=== PATIENT | female | born 1945 | race Caucasian/White ===

== ENCOUNTER 2022-07-23 09:15 | Emergency (ER) | payer MEDICARE ==
[~2022-07-23] VITALS: Ht 165.1 cm; Wt 98.0 kg
[2022-07-23 09:26] VITALS: BP 176/63
[2022-07-23] MEDS ORDERED: PRED20TA PO (11:06)
[2022-07-23] MEDS ORDERED: ORPH100T2 PO (11:06)
[2022-07-23] MEDS ORDERED: AMOX-117 PO (11:06)
[2022-07-23] MEDS ORDERED: FLUT16SP8 BOTHNARES (11:06)
== END 2022-07-23 11:20 | disposition home or self-care (01) ==
LOC: ER 09:16
DX: S16.1XXA Strain of muscle, fascia and tendon at neck level, initial encounter (principal); J01.10 Acute frontal sinusitis, unspecified; Z90.49 Acquired absence of other specified parts of digestive tract; Z79.899 Other long term (current) drug therapy; X58.XXXA Exposure to other specified factors, initial encounter; Y93.89 Activity, other specified; Y92.89 Other specified places as the place of occurrence of the external cause; Y99.8 Other external cause status
CPT/HCPCS: 99283